=== PATIENT | female | born 1935 | race Hispanic/Latino ===

== ENCOUNTER 2017-05-06 13:43 | Observation (INO) | payer MEDICARE, OTHER ==
[2017-05-06 13:43] VITALS: BMI 21.5
--- NOTE | 2017-05-06 14:15 | C.PDOC ---
History Of Present Illness 81 y/o female sent to ED by Dr. Lees for admission on neck pain that started yesterday when making pancakes as per patient. Patient describes pain as "aching " and tightness radiating to head and restricting her from moving neck. Patient reports being seen at [facility] yesterday and given Valium with no relief. No other complaints at this time. Time Seen by Provider: 05/06/17 14:07 Chief Complaint (Nursing): Back Pain History Per: Patient History/Exam Limitations: no limitations Onset/Duration Of Symptoms: Days Current Symptoms Are (Timing): Still Present Quality Of Discomfort: "Pain", Other (tightness) Past Medical History Reviewed: Historical Data, Nursing Documentation, Vital Signs Vital Signs: Last Vital Signs Temp 98.8 F 05/06/17 13:58 Pulse 79 05/06/17 13:58 Resp 17 05/06/17 13:58 BP 137/75 05/06/17 13:58 Pulse Ox 96 05/06/17 14:54 - Medical History PMH: Anemia, Anxiety, Arthritis, CAD, CHF, COPD, CVA, Diabetes, Deep Vein Thrombosis, Gall Bladder Disease, HTN, Hypercholesterolemia, Hypothyroidism, Peripheral Edema, Pneumonia, Chronic Kidney Disease (RENAL INSUFICIENCY), Sleep Apnea, TIA Surgical History: Cholecystectomy, Endoscopy - [facility] Procedures EXC LES SOFT TISSUE NEC (07/04/13) EXCISION OF RIGHT KNEE JOINT, OPEN APPROACH (09/07/16) IMMOBILIZ/WOUND ATTN NEC (06/28/14) PHYSICAL THERAPY NEC (02/26/14) RELEASE RIGHT KNEE JOINT, OPEN APPROACH (09/07/16) REPLACE OF R KNEE JT WITH SYNTH SUB, CEMENT, OPEN APPROACH (09/07/16) Family History: States: Unknown Family Hx - Social History Hx Tobacco Use: No Hx Alcohol Use: No Hx Substance Use: No - Immunization History Hx Tetanus Toxoid Vaccination: Yes (received one year ago) Hx Influenza Vaccination: Yes Hx Pneumococcal Vaccination: No Review Of Systems Constitutional: Negative for: Fever, Chills Cardiovascular: Negative for: Chest Pain Respiratory: Negative for: Shortness of Breath Musculoskeletal: Positive for: Neck Pain. Negative for: Back Pain Skin: Negative for: Rash Neurological: Positive for: Headache. Negative for: Weakness, Numbness Physical Exam - Physical Exam Appears: No Acute Distress, Other (Elderly appearing) Skin: Normal Color, Warm, Dry, No Rash Head: Atraumatic, Normacephalic Eye(s): bilateral: Normal Inspection, EOMI Oral Mucosa: Moist Neck: Decreased ROM (secondary to pain), No Midline Cervical Tenderness, Paracervical Tenderness (Diffuse Trapezius tenderness, muscle spasms, right side greater than left) Chest: Symmetrical Cardiovascular: Rhythm Regular, No Murmur Respiratory: Normal Breath Sounds, No Rales, No Rhonchi, No Wheezing Gastrointestinal/Abdominal: Soft, No Tenderness, No Guarding, No Rebound Back: Normal Inspection, No Vertebral Tenderness, Muscle Spasm (neck) Extremity: Bilateral: Atraumatic, Normal Color And Temperature Neurological/Psych: Oriented x3, Normal Speech Gait: With Assistance ED Course And Treatment - Laboratory Results Result Diagrams: 05/06/17 14:37 05/06/17 14:37 O2 Sat by Pulse Oximetry: 96 (RA) Pulse Ox Interpretation: Normal Medical Decision Making Medical Decision Making: Patient seen at [facility] yesterday 05/05/[address] head and C-spine C-spine shows Mild multilevel degenerative spondylosis with varying degrees of foraminal stenosis on more so on the right as above. No acute compression fractures. CT head: No acute intracranial hemorrhage. Large chronic left MCA territory branch infarct with overlying sulcal enlargement and ex vacuo dilatation of the left lateral ventricle. Questionable chronic ischemic changes left lateral jefry. Mild chronic periventricular white matter ischemic changes. Mild moderate atrophy [address] Lees who wants patient as obs-medicine admission and to treat with steroids. 1425 Spoke with medical records clerk. Orders placed for labs and meds Disposition - Disposition Disposition: HOSPITALIZED Disposition Time: 14:21 Condition: STABLE - POA Present On Arrival: None - Clinical Impression Clinical Impression: Torticollis, At risk for falls - PA / MALARIOLOGIST / Resident Statement MD/DO has reviewed & agrees with the documentation as recorded. - Scribe Statement The provider has reviewed the documentation as recorded by the Alex Bautista All medical record entries made by the Sadaibdionicio were at my direction and personally dictated by me. I have reviewed the chart and agree that the record accurately reflects my personal performance of the history, physical exam, medical decision making, and the department course for this patient. I have also personally directed, reviewed, and agree with the discharge instructions and disposition. Decision To Admit - Pt Status Changed To: Hospital Disposition Of: Observation - . Bed Request Type: Regular Admitting Physician: Julian Lees Jr. Patient Diagnosis: Torticollis, At risk for falls
[2017-05-06] MEDS ORDERED: Lidocaine 5% Patch TD STA (14:20)
[2017-05-06] MEDS ORDERED: Dexamethasone 4 mg/1 ml IVP STA (14:20)
[2017-05-06 14:41] LABS: BASO % 0.5 % (0.0-2.0); EOS % 0.3 % (0.0-4.0); LYMPH # 1.3 K/uL (1.0-4.3); LYMPH % 12.1 % (20.0-40.0); MEAN CELL VOLUME 91.6 fL (81.0-99.0); MEAN CORPUSCULAR HEMOGLOBIN 31.1 pg (27.0-31.0); MONO # 1.3 K/uL (0.0-0.8); MONO % 12.4 % (0.0-10.0); WHITE BLOOD COUNT 10.7 K/uL (4.8-10.8)
[2017-05-06] MEDS ORDERED: Lidocaine 5% Patch TD ONE (14:46)
[2017-05-06] MEDS ORDERED: Dexamethasone 4 mg/1 ml ONE (14:46)
[2017-05-06 14:49] LABS: POTASSIUM 4.2 mmol/L (3.6-5.2)
[2017-05-06 14:50] LABS: INR 1.1
[2017-05-06 14:51] LABS: BILIRUBIN,TOTAL 0.6 mg/dL (0.2-1.3)
[2017-05-06 14:52] LABS: ALB/GLOB RATIO 1.3 (1.0-2.1); CALCIUM 9.6 mg/dl (8.6-10.4); TOTAL PROTEIN 7.3 g/dL (6.3-8.3)
[2017-05-06 15:31] LABS: URINE BILIRUBIN NEGATIVE (NEGATIVE); URINE BLOOD NEGATIVE (NEGATIVE); URINE COLOR Yellow (YELLOW); URINE GLUCOSE (UA) 2+ mg/dL (Normal); URINE KETONE NEGATIVE (NEGATIVE); URINE LEUKOCYTE ESTERASE TRACE Leu/uL (Negative); URINE PROTEIN NEGATIVE (NEGATIVE); URINE UROBILINOGEN NORMAL mg/dL (0.2-1.0); WBC URINE 4 /hpf (0-5)
--- NOTE | 2017-05-06 16:02 | CP.PCM.HP ---
History of Present Illness - History of Present Illness History of Present Illness: HPI: 80F with PMH of DM, HTN, CHF, CVA/TIA, DVT to right LE, COPD, Hypothyroidism, Macular Degeneration, and gout presents to the ED with 3 days of severe neck pain. Patient says she went to the hospital yesterday but did not want to stay because she wanted to see her PMD so she left with a prescription for Valium 2mg BID. Patient says she took this at noon today but has not had any relief so she called her PMD who told her to come here. Patient says the pain has been constant and describes it as sharp, 10/10 pain on the lateral aspect of her neck radiating down the front of her neck and towards her shoulders. Patient says it is worse when she moves and has not found anything that makes it better. Patient admits to recent fatigue, headache, and blurry vision. Patient also admits to SOB that she attributes to her CHF. She also has a cough productive of white sputum and occasionally loses urine when she coughs. Patient denies fever, weakness, change in weight, dizziness, tinnitus, sore throat, palpitations, chest pain, abdominal pain, n/v/d/c, melena, hematochezia, dysuria, frequency, urgency, hematuria, flank/suprapubic pain, back pain, numbness/tingling/burning sensation in extremities, and rash. PMHx: DM, HTN, CHF, CVA/TIA, DVT to right LE, COPD, Hypothyroidism, Macular Degeneration, gout PSHx: TKA (Right knee), Cardiac Cathererization, Hysterectomy, Cholecystectomy 1991, Left Inguinal Hernia repair, Left breast biopsy x2, Thorocentesis, Chest Tube placement 2010, Pleuradesis, Bunionectomy, 2 screws in right foot Meds: Colchicine 0.6 mg QD Losartan 25 mg QD Januvia 100 mg QD Glipizide 10 mg BID Uloric 40 mg QD Renvela 800 mg TID Omega3 2g BID Vitamin D 70324 U 1/week Pepcid 40 mg QD Plavix 75 mg QD Crestor 20 mg QD Tricor 145 mg QD Lasix 40 mg BID Synthroid 125 mcg QD Multivitamin Vision Vitamin Valium 2mg BID ALL: Aspartame, Naproxen, Esomeprazole magnesium SHx: Occasional alcohol use, Denied any tobacco or illicit drug use FHx: Colon CA, DM (father), Rheumatic fever (mother) Present on Admission - Present on Admission Any Indicators Present on Admission: Yes History of DVT/PE: Yes History of Uncontrolled Diabetes: Yes Review of Systems - Review of Systems All systems: reviewed and no additional remarkable complaints except (as per HPI ) Past Patient History - Infectious Disease Hx of Infectious Diseases: None - Tetanus Immunizations Tetanus Immunization: Unknown - Past Medical History & Family History Past Medical History?: Yes - Past Social History Smoking Status: Never Smoked - CARDIAC Hx Congestive Heart Failure: Yes Hx Hypercholesterolemia: Yes Hx Hypertension: Yes Hx Peripheral Edema: Yes - PULMONARY Hx Chronic Obstructive Pulmonary Disease (COPD): Yes Hx Pneumonia: Yes Hx Sleep Apnea: Yes - NEUROLOGICAL Hx Transient Ischemic Attacks (TIA): Yes - HEENT Hx HEENT Problems: Yes Hx Cataracts: Yes (BILAT IOL) Hx Macular Degeneration: Yes - RENAL Hx Chronic Kidney Disease: Yes (RENAL INSUFICIENCY) - ENDOCRINE/METABOLIC Hx Hypothyroidism: Yes - HEMATOLOGICAL/ONCOLOGICAL Hx Anemia: Yes - INTEGUMENTARY Hx Dermatological Problems: Yes Hx Fernandez: Yes (SCARRING RIGHT HAND) Hx Cellulitis: Yes Other/Comment: SURGICAL TREATMENT TO RIGHT LOWER LEG, UNSURE OF EXACT DIAGNOSIS - MUSCULOSKELETAL/RHEUMATOLOGICAL Hx Arthritis: Yes - GASTROINTESTINAL Hx Gall Bladder Disease: Yes - GENITOURINARY/GYNECOLOGICAL Hx Genitourinary Disorders: Yes Hx Incontinence: Yes Hx Urinary Tract Infection: Yes Other/Comment: BLADDER PROLAPSE NOT SURGICALLY REPAIRED - PSYCHIATRIC Hx Anxiety: Yes Hx Substance Use: No - SURGICAL HISTORY Hx Cholecystectomy: Yes - ANESTHESIA Hx Anesthesia: Yes Hx Anesthesia Reactions: No Hx Malignant Hyperthermia: No Meds Allergies/Adverse Reactions: Allergies Allergy/AdvReac Type Severity Reaction Status Date / Time aspartame Allergy RASH Verified 05/06/17 14:00 naproxen [From Naprosyn] Allergy RASH Verified 05/06/17 14:00 esomeprazole magnesium AdvReac VOMITING Verified 05/06/17 14:00 [From Nexium] Physical Exam - Constitutional Appears: Non-toxic, No Acute Distress - Head Exam Head Exam: ATRAUMATIC, NORMAL INSPECTION, NORMOCEPHALIC - Eye Exam Eye Exam: EOMI - ENT Exam ENT Exam: Mucous Membranes Moist - Neck Exam Neck exam: Positive for: Tenderness. Negative for: Full Rom Additional comments: Patient will not rotate, side bend, flex, or extend at the neck 2/2 pain. There is pain with palpation along the trap as well as the lateral neck b/l. Muscles in the neck feel hypertonic. - Respiratory Exam Respiratory Exam: Clear to Auscultation Bilateral, NORMAL BREATHING PATTERN. absent: Rales, Rhonchi, Wheezes - Cardiovascular Exam Cardiovascular Exam: REGULAR RHYTHM, +S1, +S2. absent: Bradycardia, Tachycardia - GI/Abdominal Exam GI & Abdominal Exam: Normal Bowel Sounds, Soft. absent: Distended, Tenderness - Extremities Exam Extremities exam: Positive for: pedal edema (b/l), tenderness (b/l LEs ), pedal pulses present. Negative for: calf tenderness Additional comments: Left arm in a splint (patient says she sprained it recently) - Back Exam Back exam: NORMAL INSPECTION. absent: paraspinal tenderness, rash noted, vertebral tenderness - Neurological Exam Neurological exam: Alert, Oriented x3 - Psychiatric Exam Psychiatric exam: Normal Affect, Normal Mood - Skin Skin Exam: Dry, Intact, Normal Color, Warm Results - Vital Signs Recent Vital Signs: Last Vital Signs Temp 98.8 F 05/06/17 13:58 Pulse 77 05/06/17 15:38 Resp 18 05/06/17 15:38 BP 101/66 05/06/17 15:38 Pulse Ox 96 05/06/17 15:38 - Labs Result Diagrams: 05/06/17 14:37 05/06/17 14:37 Labs: Laboratory Results - last 24 hr 05/06/17 05/06/17 05/06/17 14:37 14:37 14:37 WBC 10.7 RBC 3.93 Hgb 12.2 D Hct 36.0 MCV 91.6 MCH 31.1 H MCHC 34.0 RDW 13.0 Plt Count 255 MPV 9.0 Neut % (Auto) 74.7 Lymph % (Auto) 12.1 L [place] % (Auto) 12.4 H Eos % (Auto) 0.3 Baso % (Auto) 0.5 Neut # 8.0 H Lymph # 1.3 [place] # 1.3 H Eos # 0.0 Baso # 0.0 PT 12.6 H INR 1.1 APTT 28 Sodium 142 Potassium 4.2 Chloride 96 L Carbon Dioxide 31 H Anion Gap 19 BUN 33 H Creatinine 1.2 Est GFR ( Amer) 52 Est GFR (Non-Af Amer) 43 Random Glucose 229 H Calcium 9.6 Total Bilirubin 0.6 AST 25 ALT 30 Alkaline Phosphatase 35 L Total Protein 7.3 Albumin 4.1 Globulin 3.2 Albumin/Globulin Ratio 1.3 Urine Color Urine Clarity Urine pH Ur Specific [place] Urine Protein Urine Glucose (UA) Urine Ketones Urine Blood Urine Nitrate Urine Bilirubin Urine Urobilinogen Ur Leukocyte Esterase Urine WBC (Auto) Ur Squamous Epith Cells Hyaline Casts 05/06/17 15:17 WBC RBC Hgb Hct MCV MCH MCHC RDW Plt Count MPV Neut % (Auto) Lymph % (Auto) [place] % (Auto) Eos % (Auto) Baso % (Auto) Neut # Lymph # [place] # Eos # Baso # PT INR APTT Sodium Potassium Chloride Carbon Dioxide Anion Gap BUN Creatinine Est GFR ( Amer) Est GFR (Non-Af Amer) Random Glucose Calcium Total Bilirubin AST ALT Alkaline Phosphatase Total Protein Albumin Globulin Albumin/Globulin Ratio Urine Color Yellow Urine Clarity Clear Urine pH 5.0 Ur Specific [place] 1.012 Urine Protein Negative Urine Glucose (UA) 2+ H Urine Ketones Negative Urine Blood Negative Urine Nitrate Negative Urine Bilirubin Negative Urine Urobilinogen Normal Ur Leukocyte Esterase Trace Urine WBC (Auto) 4 Ur Squamous Epith Cells 1 Hyaline Casts 3-5 H Assessment & Plan - Assessment and Plan (Free Text) Assessment: Neck pain/Muscle spasm * CT cervical spine: degenerative spondylosis and foraminal stenosis moreso on the Right than Left * CT Head: Chronic Left MCA infarct with sucal enlargement and ex vacuo dilation of left lateral ventricle * Valium 2mg BID DM Januvia 100 mg QD Glipizide 10 mg BID Hx CHF Lasix 40 mg BID Losartan 25 mg QD Hx HTN Losartan 25 mg QD (home med) Hx HLD Crestor 20 mg QD (home med) Tricor 145 mg QD (home med) Hx Hypothroidism Synthroid 125 mcg QD (home med) Hx Gout Colchicine 0.6 mg QD (home med) Uloric 40 mg QD (home med) Hx Macular degeneration Vision Vitamin (home med) PPX C/I SCDs - LE edema Plavix 75 mg QD (home med) Pepcid 40 mg QD (home med)
[2017-05-06] MEDS: OMEGA ACID ETHYL ESTERS PO SCH (18:20)
[2017-05-06 23:26] VITALS: RESP 20
[2017-05-07] MEDS: Levothyroxine 125 MCG TAB PO SCH (05:56)
[2017-05-07 07:38] LABS: BASO % 0.1 % (0.0-2.0); HEMATOCRIT 34.5 % (34.0-47.0); LYMPH # 0.9 K/uL (1.0-4.3); LYMPH % 10.2 % (20.0-40.0); MEAN CELL VOLUME 91.3 fL (81.0-99.0); MEAN CORPUSCULAR HEMOGLOBIN 31.7 pg (27.0-31.0); MEAN CORPUSCULAR HGB CONC 34.7 g/dL (33.0-37.0); MEAN PLATELET VOLUME 9.3 fL (7.2-11.7); MONO # 0.7 K/uL (0.0-0.8); RED CELL DISTRIBUTION WIDTH 12.6 % (11.5-14.5)
[2017-05-07 08:12] LABS: POTASSIUM 3.8 mmol/L (3.6-5.2)
[2017-05-07 08:15] LABS: ALB/GLOB RATIO 1.3 (1.0-2.1); BILIRUBIN,TOTAL 0.5 mg/dL (0.2-1.3); TOTAL PROTEIN 6.9 g/dL (6.3-8.3)
[2017-05-07 08:16] LABS: CALCIUM 9.4 mg/dl (8.6-10.4)
[2017-05-07] MEDS ORDERED: Enoxaparin 30 mg Syringe SC SCH (10:00)
[2017-05-07] MEDS ORDERED: VITS A C E PO SCH (10:00)
[2017-05-07] MEDS ORDERED: ZINC PO SCH (10:00)
[2017-05-07] MEDS ORDERED: COPPER PO SCH (10:00)
[2017-05-07] MEDS: OMEGA ACID ETHYL ESTERS PO SCH (11:11)
[2017-05-07] MEDS: Multivitamin With Minerals Tab PO SCH (11:55)
--- NOTE | 2017-05-07 13:14 | CP.PCM.PN ---
Subjective - Date & Time of Evaluation Date of Evaluation: 05/07/17 Time of Evaluation: 07:00 - Subjective Subjective: PGY1- Medicine Note- Dr. Lees's Service Patient seen and examined today at bedside and in no acute distress. Patient still having a lot of pain in her neck and says the left side is worse than the right. Patient can move her neck slightly but says it causes her pain. Patient denies any chest pain, shortness of breath, abdominal pain, nausea, vomiting, or diarrhea. Objective - Vital Signs/Intake and Output Vital Signs (last 24 hours): Temp Pulse Resp BP Pulse Ox 97.7 F 69 20 98/61 L 95 05/07/17 08:00 05/07/17 08:00 05/07/17 08:00 05/07/17 08:00 05/07/17 08:00 Intake and Output: 05/07/17 05/07/17 06:59 18:59 Intake Total 300 200 Balance 300 200 - Medications Medications: Current Medications Allopurinol (Zyloprim) 100 mg PO DAILY [facility] Clopidogrel Bisulfate (Plavix) 75 mg PO DAILY [facility] Last Admin: 05/07/17 10:57 Dose: Not Given Diazepam (Valium) 5 mg PO BID PRN PRN Reason: Muscle spasm Enoxaparin Sodium (Lovenox) 30 mg SC DAILY [facility] Last Admin: 05/07/17 11:09 Dose: Not Given Ergocalciferol (Drisdol 50,000 Intl Units Cap) 1 cap PO QWK [facility] Famotidine (Pepcid) 40 mg PO DAILY [facility] Last Admin: 05/07/17 11:09 Dose: Not Given Fenofibrate (Tricor) 145 mg PO HS [facility] Last Admin: 05/06/17 22:00 Dose: 145 mg Furosemide (Lasix) 40 mg PO BID [facility] Last Admin: 05/07/17 11:10 Dose: Not Given Glipizide (Glucotrol) 10 mg PO BIDAC [facility] Last Admin: 05/07/17 07:59 Dose: 10 mg Heparin Sodium (Porcine) (Heparin) 5,000 units SC Q8 [facility] Levothyroxine Sodium (Synthroid) 125 mcg PO DAILY@0630 [facility] Last Admin: 05/07/17 05:56 Dose: 125 mcg Losartan Potassium (Cozaar) 25 mg PO DAILY [facility] Last Admin: 05/07/17 10:57 Dose: Not Given Multivitamins/Minerals (Therapeutic-M Tab) 1 tab PO DAILY [facility] Last Admin: 05/07/17 11:55 Dose: Not Given Kzkap-[id number] Ethyl Esters (Lovaza) 2 gm PO BID [facility] Rosuvastatin Calcium (Crestor) 20 mg PO HS [facility] Last Admin: 05/06/17 22:13 Dose: 20 mg Sevelamer Carbonate (Renvela) 800 mg PO TIDCC [facility] Sitagliptin Phosphate (Januvia) 25 mg PO DAILY [facility] - Labs Labs: 05/07/17 07:16 05/07/17 07:16 PT 12.6 SECONDS (9.7-12.2) H 05/06/17 14:37 INR 1.1 05/06/17 14:37 APTT 28 SECONDS (21-34) 05/06/17 14:37 - Constitutional Appears: Non-toxic, No Acute Distress - Head Exam Head Exam: ATRAUMATIC, NORMAL INSPECTION, NORMOCEPHALIC - Eye Exam Eye Exam: EOMI, Normal appearance - ENT Exam ENT Exam: Mucous Membranes Moist - Respiratory Exam Respiratory Exam: Clear to Ausculation Bilateral, NORMAL BREATHING PATTERN - Cardiovascular Exam Cardiovascular Exam: REGULAR RHYTHM, RRR - GI/Abdominal Exam GI & Abdominal Exam: Soft, Normal Bowel Sounds - Extremities Exam Extremities Exam: Full ROM, Normal Inspection Additional comments: left wrist brace - Neurological Exam Neurological Exam: Alert, Awake, Oriented x3 - Psychiatric Exam Psychiatric exam: Normal Affect, Normal Mood - Skin Skin Exam: Intact, Normal Color, Warm Assessment and Plan - Assessment and Plan (Free Text) Assessment: Neck pain/Muscle spasm * CT cervical spine: degenerative spondylosis and foraminal stenosis moreso on the Right than Left * CT Head: Chronic Left MCA infarct with sucal enlargement and ex vacuo dilation of left lateral ventricle * Valium 2mg BID DM Januvia 25 mg po daily (renally dosed) Glipizide 10 mg BID accuchecks ISS- low Hx CHF Lasix 40 mg BID Losartan 25 mg QD Lovaza 2gm po bid Hx HTN Losartan 25 mg QD (home med) Hx HLD Crestor 20 mg QD (home med) Tricor 145 mg QD (home med) Hx Hypothroidism Synthroid 125 mcg QD (home med) HX CVA,TIA Plavix 75 mg QD (home med) Hx Gout Allopurinol 100 mg daily Uloric 40 mg QD (home med) Hx Macular degeneration Vision Vitamin (home med) Hx Chronic Kidney Disease Renvela 800 mg po TIDCC PPX C/I SCDs - LE edema Pepcid 40 mg QD (home med)
[2017-05-07] MEDS: (Novolin R) Insulin Human Regular 100 units/ml vial SC SCH ×2 (18:11→21:41)
[2017-05-07] MEDS: Omega-3-Acid Ethyl Esters 1 GM Cap PO SCH (18:11)
[2017-05-08 00:01] VITALS: O2SAT 97
--- NOTE | 2017-05-08 01:44 | CARD ---
APPROVED REPORT EKG Measurement Heart [id number] <Conclusion> Normal sinus rhythm Nonspecific T wave abnormality Abnormal ECG
[2017-05-08] MEDS: Levothyroxine 125 MCG TAB PO SCH (05:47)
[2017-05-08 08:08] LABS: BASO % 0.1 % (0.0-2.0); HEMATOCRIT 36.7 % (34.0-47.0); LYMPH % 8.5 % (20.0-40.0); MEAN CORPUSCULAR HEMOGLOBIN 30.8 pg (27.0-31.0); MEAN CORPUSCULAR HGB CONC 33.8 g/dL (33.0-37.0); MEAN PLATELET VOLUME 9.4 fL (7.2-11.7); MONO # 0.5 K/uL (0.0-0.8); MONO % 3.8 % (0.0-10.0); PLATELET COUNT 303 K/uL (130-400); RED CELL DISTRIBUTION WIDTH 12.7 % (11.5-14.5); WHITE BLOOD COUNT 12.2 K/uL (4.8-10.8)
[2017-05-08] MEDS: (Novolin R) Insulin Human Regular 100 units/ml vial SC SCH ×2 (08:08→12:08)
[2017-05-08 08:55] LABS: POTASSIUM 4.2 mmol/L (3.6-5.2)
[2017-05-08 08:57] LABS: ALB/GLOB RATIO 1.3 (1.0-2.1); BILIRUBIN,TOTAL 0.5 mg/dL (0.2-1.3); PHOSPHOROUS 3.7 mg/dL (2.5-4.5); TOTAL PROTEIN 7.6 g/dL (6.3-8.3)
[2017-05-08 08:58] LABS: CALCIUM 9.6 mg/dl (8.6-10.4); MAGNESIUM 1.8 mg/dL (1.6-2.3)
[2017-05-08 09:19] VITALS: BP 115/66; PULSE 69; TEMP 97.7
[2017-05-08] MEDS: Multivitamin With Minerals Tab PO SCH (09:23)
[2017-05-08] MEDS: Omega-3-Acid Ethyl Esters 1 GM Cap PO SCH (09:24)
[2017-05-08 10:39] LABS: NEUTROPHIL 90 % (50-75); TOTAL CELLS COUNTED 100
[2017-05-08 10:40] LABS: GIANT PLATELETS PRESENT; LARGE PLATELETS PRESENT
--- NOTE | 2017-05-08 12:06 | CP.PCM.DIS ---
Provider - Provider Date of Admission: 05/06/17 14:22 Attending physician: Julian Lees Jr, MD Primary care physician: Dr. Lees Time Spent in preparation of Discharge (in minutes): 45 Diagnosis - Discharge Diagnosis (1) Neck stiffness Status: Acute Comment: Patient discharged on home medications and Rx for Valium 5mg PO Q6H PRN for muscle spasm #8 tabs. Hospital Course - Lab Results Lab Results: Most Recent Lab Values WBC 12.2 K/uL (4.8-10.8) H 05/08/17 07:50 RBC 4.03 Mil/uL (3.80-5.20) 05/08/17 07:50 Hgb 12.4 g/dL (11.0-16.0) 05/08/17 07:50 Hct 36.7 % (34.0-47.0) 05/08/17 07:50 MCV 91.0 fL (81.0-99.0) 05/08/17 07:50 MCH 30.8 pg (27.0-31.0) 05/08/17 07:50 MCHC 33.8 g/dL (33.0-37.0) 05/08/17 07:50 RDW 12.7 % (11.5-14.5) 05/08/17 07:50 Plt Count 303 K/uL (130-400) 05/08/17 07:50 MPV 9.4 fL (7.2-11.7) 05/08/17 07:50 Neut % (Auto) 87.6 % (50.0-75.0) H 05/08/17 07:50 Lymph % (Auto) 8.5 % (20.0-40.0) L 05/08/17 07:50 Woods % (Auto) 3.8 % (0.0-10.0) 05/08/17 07:50 Eos % (Auto) 0.0 % (0.0-4.0) 05/08/17 07:50 Baso % (Auto) 0.1 % (0.0-2.0) 05/08/17 07:50 Neut # 10.7 K/uL (1.8-7.0) H 05/08/17 07:50 Lymph # 1.0 K/uL (1.0-4.3) 05/08/17 07:50 Woods # 0.5 K/uL (0.0-0.8) 05/08/17 07:50 Eos # 0.0 K/uL (0.0-0.7) 05/08/17 07:50 Baso # 0.0 K/uL (0.0-0.2) 05/08/17 07:50 Neutrophils % (Manual) 90 % (50-75) H 05/08/17 07:50 Band Neutrophils % 2 % (0-2) 05/08/17 07:50 Lymphocytes % (Manual) 5 % (20-40) L 05/08/17 07:50 Monocytes % (Manual) 3 % (0-10) 05/08/17 07:50 Toxic Granulation Present 05/08/17 07:50 Platelet Estimate Normal (NORMAL) 05/08/17 07:50 Large Platelets Present 05/08/17 07:50 Giant Platelets Present 05/08/17 07:50 Polychromasia Slight 05/08/17 07:50 Hypochromasia (manual) Slight 05/08/17 07:50 Anisocytosis (manual) Slight 05/08/17 07:50 PT 12.6 SECONDS (9.7-12.2) H 05/06/17 14:37 INR 1.1 05/06/17 14:37 APTT 28 SECONDS (21-34) 05/06/17 14:37 Sodium 138 mmol/L (132-148) 05/08/17 07:50 Potassium 4.2 mmol/L (3.6-5.2) 05/08/17 07:50 Chloride 96 mmol/L (98-107) L 05/08/17 07:50 Carbon Dioxide 26 mmol/L (22-30) 05/08/17 07:50 Anion Gap 20 (10-20) 05/08/17 07:50 BUN 47 mg/dL (7-17) H 05/08/17 07:50 Creatinine 1.4 MG/DL (0.7-1.2) H 05/08/17 07:50 Est GFR ( Amer) 44 05/08/17 07:50 Est GFR (Non-Af Amer) 36 05/08/17 07:50 POC Glucose (mg/dL) 425 mg/dL (65-110) H* 05/08/17 11:50 Random Glucose 378 mg/dL (65-105) H 05/08/17 07:50 Calcium 9.6 mg/dl (8.6-10.4) 05/08/17 07:50 Phosphorus 3.7 mg/dL (2.5-4.5) 05/08/17 07:50 Magnesium 1.8 mg/dL (1.6-2.3) 05/08/17 07:50 Total Bilirubin 0.5 mg/dL (0.2-1.3) 05/08/17 07:50 AST 21 U/L (14-36) 05/08/17 07:50 ALT 30 U/L (9-52) 05/08/17 07:50 Alkaline Phosphatase 47 U/L (38-126) 05/08/17 07:50 Total Protein 7.6 g/dL (6.3-8.3) 05/08/17 07:50 Albumin 4.4 g/dL (3.5-5.0) 05/08/17 07:50 Globulin 3.2 gm/dL (2.2-3.9) 05/08/17 07:50 Albumin/Globulin Ratio 1.3 (1.0-2.1) 05/08/17 07:50 Urine Color Yellow (YELLOW) 05/06/17 15:17 Urine Clarity Clear (Clear) 05/06/17 15:17 Urine pH 5.0 (5.0-8.0) 05/06/17 15:17 Ur Specific [place] 1.012 (1.003-1.030) 05/06/17 15:17 Urine Protein Negative mg/dL (NEGATIVE) 05/06/17 15:17 Urine Glucose (UA) 2+ mg/dL (Normal) H 05/06/17 15:17 Urine Ketones Negative mg/dL (NEGATIVE) 05/06/17 15:17 Urine Blood Negative (NEGATIVE) 05/06/17 15:17 Urine Nitrate Negative (NEGATIVE) 05/06/17 15:17 Urine Bilirubin Negative (NEGATIVE) 05/06/17 15:17 Urine Urobilinogen Normal mg/dL (0.2-1.0) 05/06/17 15:17 Ur Leukocyte Esterase Trace Shanna/uL (Negative) 05/06/17 15:17 Urine WBC (Auto) 4 /hpf (0-5) 05/06/17 15:17 Ur Squamous Epith Cells 1 /hpf (0-5) 05/06/17 15:17 Hyaline Casts 3-5 /lpf (0-2) H 05/06/17 15:17 - Hospital Course Hospital Course: 80F with PMH of DM, HTN, CHF, CVA/TIA, DVT to right LE, COPD, Hypothyroidism, Macular Degeneration, and gout presents to the ED with 3 days of severe neck pain. Patient says she went to the hospital yesterday but did not want to stay because she wanted to see her PMD so she left with a prescription for Valium 2mg BID. Patient says she took this at noon today but has not had any relief so she called her PMD who told her to come here. Patient says the pain has been constant and describes it as sharp, 10/10 pain on the lateral aspect of her neck radiating down the front of her neck and towards her shoulders. Patient says it is worse when she moves and has not found anything that makes it better. Patient admits to recent fatigue, headache, and blurry vision. Patient also admits to SOB that she attributes to her CHF. She also has a cough productive of white sputum and occasionally loses urine when she coughs. Patient denies fever, weakness, change in weight, dizziness, tinnitus, sore throat, palpitations, chest pain, abdominal pain, n/v/d/c, melena, hematochezia , dysuria, frequency, urgency, hematuria, flank/suprapubic pain, back pain, numbness/tingling/burning sensation in extremities, and rash. Patient was admitted for observation of neck pain. CT cervical spine done showed degenerative spondylosis and foraminal stenosis moreso on the Right than Left CT Head done showed Chronic Left MCA infarct with sucal enlargement and ex vacuo dilation of left lateral ventricle Patient was placed on Valium 2mg BID as per Dr. Lees and all other home medications were resumed. Patient was cleared for discharge as per Dr. Lees. Patient was sent home with prescription for Valium 5 mg PO Q6H PRN for muscle spasm and instructed to follow up with Dr. Lees within 1 week. This is only a summary of the hospital course. Please see chart for full details. Discharge Exam - Head Exam Head Exam: ATRAUMATIC, NORMAL INSPECTION, NORMOCEPHALIC - Eye Exam Eye Exam: EOMI, Normal appearance - ENT Exam ENT Exam: Mucous Membranes Moist - Neck Exam Neck exam: Normal Inspection Additional comments: Limited ROM turning head to left - Respiratory Exam Respiratory Exam: Clear to PA & Lateral, NORMAL BREATHING PATTERN - Cardiovascular Exam Cardiovascular Exam: REGULAR RHYTHM, +S1, +S2 - GI/Abdominal Exam GI & Abdominal Exam: Normal Bowel Sounds, Unremarkable - Extremities Exam Extremities exam: full ROM - Back Exam Back exam: NORMAL INSPECTION - Neurological Exam Neurological exam: Alert, Oriented x3 - Psychiatric Exam Psychiatric exam: Normal Affect, Normal Mood - Skin Skin Exam: Dry, Warm Discharge Plan - Discharge Medications Prescriptions: diaZEpam [Valium] 5 mg PO Q6H PRN #8 tab PRN Reason: Muscle Spasm Methylprednisolone [Medrol Dose Pack (21 tabs)] 4 mg PO DAILY #21 mg - Follow Up Plan Condition: STABLE Disposition: HOME/ ROUTINE Instructions: Diazepam (By mouth), Methylprednisolone (By mouth), Heart Failure (DC), Coronary Artery Disease (DC), Spasmodic Torticollis (DC) Additional Instructions: Please resume all home medications as prescribed. Please take new medications of Valium 5 mg by mouth every 6 hours as needed for severe muscle spasm. Please take Medrol dose pack as directed. Please follow up with Dr. Lees in his office within 1 week of discharge. Please return to the emergency room if symptoms return. Instructions given to patient who understands and agrees. Referrals: Julian Lees Jr., MD [Medical Doctor] -
--- NOTE | 2017-05-08 13:12 | PCM.HF ---
Heart Failure Core Measure - Heart Failure Ejection Fraction: 40 % or Greater Left Ventricular Function to be assessed after discharge: Yes AIDAN Inhibitor Prescribed: No Contraindication/Reason for not providing: ARB prescribed Beta-Micheal Prescribed: None Contraindication/Reason for not providing: Borderline HR Angiotensin II Receptor Micheal Prescribed: Yes AnticoagulationTherapy for Atrial Fibrillation/Atrialflutter: No Contraindication/Reason for not providing: Patient does not have A.fib Aldosterone Antagonist Prescribed: No Contraindication/Reason for not providing: not indicated Hydralazine Nitrate Prescribed: No Contraindication/Reason for not providing: Not indicated Implantable Cardioverter Defibrillator Therapy: No Contraindication/Reason for not providing: EF> 50% - Follow up Will be discharged to: Home Follow Up Date (must be within 7 days from discharge): 05/10/17 Follow Up Time: 09:00 (with PMD Dr. Lees)
[2017-05-13] MEDS ORDERED: Ergocalciferol 50,000 Intl Units Cap PO SCH (10:00)
== END 2017-05-08 13:35 | disposition home or self-care (01) ==
LOC: C.ER 13:43 → C.9E 14:22 → C.3T 14:57
PROVIDERS: ADMIT Internal Medicine; ATTEND Internal Medicine
DX: M47.812 Spondylosis without myelopathy or radiculopathy, cervical region (principal); I13.0 Hypertensive heart and chronic kidney disease with heart failure and stage 1 through stage 4 chronic kidney disease, or unspecified chronic kidney disease; E11.22 Type 2 diabetes mellitus with diabetic chronic kidney disease; I50.9 Heart failure, unspecified; J44.9 Chronic obstructive pulmonary disease, unspecified; I25.10 Atherosclerotic heart disease of native coronary artery without angina pectoris; N18.9 Chronic kidney disease, unspecified; E78.00 Pure hypercholesterolemia, unspecified; E03.9 Hypothyroidism, unspecified; E78.5 Hyperlipidemia, unspecified; G47.30 Sleep apnea, unspecified; H35.30 Unspecified macular degeneration; M10.9 Gout, unspecified; Z86.73 Personal history of transient ischemic attack (TIA), and cerebral infarction without residual deficits; Z87.01 Personal history of pneumonia (recurrent); Z87.440 Personal history of urinary (tract) infections; Z90.49 Acquired absence of other specified parts of digestive tract; Z91.81 History of falling; Z96.651 Presence of right artificial knee joint
CPT/HCPCS: 36415; 80053; 81001; 82948; 83735; 84100; 85025; 85610; 85730; 93005; 96374; 97116; 97161; 99285; G0378; G8978; G8979; J1100; J1644; J2930

== ENCOUNTER 2018-03-04 21:56 | Emergency (ER) | payer MEDICARE, OTHER ==
[2018-03-04 21:56] VITALS: BMI 21.5
[2018-03-04 23:59] VITALS: BP 129/71; PULSE 61; RESP 18; TEMP 97.8; O2SAT 98
--- NOTE | 2018-03-05 00:04 | C.PDOC ---
Time Seen by Provider: 03/04/18 22:15 Chief Complaint (Nursing): Eye Problem History Per: Patient Onset/Duration Of Symptoms: Days (Since the beginning of the month) Current Symptoms Are (Timing): Still Present Injury To Eye?: No Severity: Moderate Associated Symptoms: Decreased Vision Additional History Per: Prior Records Past Medical History Reviewed: Historical Data, Nursing Documentation, Vital Signs Vital Signs: Last Vital Signs Temp 97.8 F 03/04/18 23:59 Pulse 61 03/04/18 23:59 Resp 18 03/04/18 23:59 BP 129/71 03/04/18 23:59 Pulse Ox 98 03/04/18 23:59 - Medical History PMH: Anemia, Anxiety, Arthritis, CAD, CHF, COPD, CVA, Dementia, Diabetes, Deep Vein Thrombosis, Gall Bladder Disease, HTN, Hypercholesterolemia, Hypothyroidism , Peripheral Edema, Pneumonia, Chronic Kidney Disease (RENAL INSUFICIENCY), Sleep Apnea, TIA Surgical History: Cholecystectomy, Endoscopy - [facility] Procedures EXC LES SOFT TISSUE NEC (07/04/13) EXCISION OF RIGHT KNEE JOINT, OPEN APPROACH (09/07/16) IMMOBILIZ/WOUND ATTN NEC (06/28/14) PHYSICAL THERAPY NEC (02/26/14) RELEASE RIGHT KNEE JOINT, OPEN APPROACH (09/07/16) REPLACE OF R KNEE JT WITH SYNTH SUB, CEMENT, OPEN APPROACH (09/07/16) Family History: States: Unknown Family Hx - Social History Hx Tobacco Use: No Hx Alcohol Use: No Hx Substance Use: No - Immunization History Hx Tetanus Toxoid Vaccination: Yes (received one year ago) Hx Influenza Vaccination: Yes Hx Pneumococcal Vaccination: No Review Of Systems Except As Marked, All Systems Reviewed And Found Negative. Constitutional: Negative for: Fever, Weakness Eyes: Positive for: Vision Change Cardiovascular: Negative for: Chest Pain Respiratory: Negative for: Shortness of Breath Gastrointestinal: Negative for: Vomiting, Abdominal Pain Musculoskeletal: Negative for: Neck Pain Skin: Negative for: Rash Neurological: Positive for: Headache. Negative for: Weakness, Numbness Physical Exam - Physical Exam Appears: Non-toxic, No Acute Distress Skin: Normal Color, Warm, Dry, No Rash Head: Atraumatic, Normacephalic Eye(s): bilateral: PERRL, EOMI Neck: Normal ROM, Supple Cardiovascular: Rhythm Regular Respiratory: Normal Breath Sounds, No Accessory Muscle Use Gastrointestinal/Abdominal: Soft, No Tenderness Extremity: Normal ROM Neurological/Psych: Oriented x3, Normal Speech, Normal Cognition, No Cerebellar Signs, Normal Motor, Normal Sensation ED Course And Treatment O2 Sat by Pulse Oximetry: 98 Pulse Ox Interpretation: Normal - CT Scan/US CT head Other Rad Studies (CT/US): Read By Radiologist, Radiology Report Reviewed CT/US Interpretation: IMPRESSION: 1. No acute intracranial abnormality. 2. Sequela of remote left MCA distribution infarction as detailed above. 3. Mild cortical volume loss. 4. Sequela of chronic microvascular disease. Progress Note: Pt's vision is much worse in the right eye, but pt states it was so from before. Pt states that she follows up with an legal biller. Disposition Counseled Patient/Family Regarding: Studies Performed, Diagnosis, Need For Followup - Disposition Referrals: Julian Lees Jr., MD [Medical Doctor] - Disposition: HOME/ ROUTINE Disposition Time: 00:05 Condition: FAIR Additional Instructions: Follow up with your primary doctor and your Hydrodynamics Teacher (eye doctor) within 1 week for further evaluation and treatment. Return to the ER if you develop worsening of symptoms or if you have any other concerns. Forms: [employer] (Bulgarian), General Discharge Instructions - Clinical Impression Clinical Impression: Vision abnormalities
--- NOTE | 2018-03-05 12:32 | CT ---
Date of service: 03/04/2018 PROCEDURE: CT HEAD WITHOUT CONTRAST. HISTORY: Vision changes x 3 weeks COMPARISON: Noncontrast head CT 07/05/2017. TECHNIQUE: Axial computed tomography images were obtained through the head/brain without intravenous contrast. Radiation dose: Total exam DLP = 724.72 mGy-cm. This CT exam was performed using one or more of the following dose reduction techniques: Automated exposure control, adjustment of the mA and/or kV according to patient size, and/or use of iterative reconstruction technique. FINDINGS: HEMORRHAGE: No intracranial hemorrhage. BRAIN: Chronic infarct left temporal lobe reiterated. Diffuse cerebral atrophy chronic microangiopathy remain mild with no interval acute intracranial findings grossly. This includes the cortex diffusely with good corticomedullary diaphragm indicating remaining exclusive of the infarcted left temporal lobe territory. Midline brain anatomy is unremarkable and there is no suspicious extra-axial fluid collection identified. VENTRICLES: Unremarkable. No hydrocephalus. CALVARIUM: Unremarkable. PARANASAL SINUSES: Unremarkable as visualized. No significant inflammatory changes. MASTOID AIR CELLS: Unremarkable as visualized. No inflammatory changes. OTHER FINDINGS: None. IMPRESSION: Stable unenhanced head CT including chronic infarct left temporal lobe and age-related age-appropriate neuro degenerative findings, which remain mild. Follow-up CT or MRI are available should clinical presentation require. Concordant preliminary report from [facility], 03/04/2018.
== END 2018-03-05 00:18 | disposition home or self-care (01) ==
LOC: C.ER 21:56
DX: H53.9 Unspecified visual disturbance (principal)